=== PATIENT | male | born 1935 | race Caucasian/White ===

== ENCOUNTER 2020-11-04 21:05 | Observation (INO) | payer MEDICARE, BC ==
[~2020-11-04] VITALS: Ht 177.8 cm; Wt 100.0 kg
[2020-11-04 21:51] LABS: BASO # 0.1 (0.0-0.2); BASO % 0.5 % (0.0-2.0); EOS % 0.1 % (0-4.0); GRAN # 12.3 (1.4-6.5); GRAN % 89.8 % (42.2-75.2); HEMATOCRIT 41.8 % (42.0-52.0); HEMOGLOBIN 14.1 g/dl (13.5-18.0); LYMPH # 0.6 (1.2-3.4); LYMPH % 4.1 % (20.0-51.0); MEAN CELL VOLUME 93 fl (80.0-100.0); MEAN CORPUSCULAR HEMOGLOBIN 32 pg (27.0-31.0); MEAN CORPUSCULAR HGB CONC 34 g/dl (33.0-37.0); MEAN PLATELET VOLUME 10.6 fl (7.4-10.4); MONO # 0.7 (0.1-0.6); PLATELET COUNT 272 K/mm3 (130-400); RED BLOOD COUNT 4.48 M/mm3 (4.20-5.60); REDCELL DISTRIBUTION WIDTH-CV 12.8 % (11.5-14.5)
[2020-11-04 22:00] LABS: COLLECTION METHOD CLEAN CATCH
[2020-11-04 22:06] LABS: ALANINE AMINOTRANSFERASE 24 U/L (4-49); ALBUMIN 4.6 gm/dL (3.5-5.0); ALKALINE PHOSPHATASE 59 U/L (50-136); ANION GAP 10 mmol/L (7-16); AST,SGOT 30 U/L (15-37); BILIRUBIN,TOTAL 0.5 mg/dL (0.0-1.0); BLOOD UREA NITROGEN 26 mg/dL (9-20); CALCIUM 9.7 mg/dL (8.4-10.2); CARBON DIOXIDE 28 mmol/L (22-30); CHLORIDE 98 mmol/L (98-107); CREATININE, serum 1.24 (0.66-1.25); GLUCOSE 140 mg/dL (74-106); LIPASE 86 U/L (23-300); POTASSIUM 4.3 mmol/L (3.4-5.0); SODIUM 136 mmol/L (137-145); TOTAL PROTEIN 8.4 gm/dL (6.4-8.2)
[2020-11-04 22:07] LABS: MUCOUS Present /lpf; PH 5 (5-8); SQUAMOUS EPITHELIAL 0-2 /hpf; URINE APPEARANCE Hazy; URINE BACTERIA None Seen /hpf; URINE BILIRUBIN Negative (NEGATIVE); URINE BLOOD Negative (NEGATIVE); URINE COLOR Yellow; URINE GLUCOSE Negative (NEGATIVE); URINE KETONE Negative (NEGATIVE); URINE LEUKOCYTE ESTERASE Negative (NEGATIVE); URINE NITRATE Negative (NEGATIVE); URINE PROTEIN(semi-quant) 2+ (NEGATIVE); URINE RBC 0-2 /hpf; URINE UROBILINOGEN Negative (NEGATIVE)
[2020-11-04 22:08] LABS: C-REACTIVE PROTEIN < 0.5 mg/dL (0.0-0.9)
[2020-11-04 22:15] LABS: TROPONIN-I < 0.012 ng/mL (0.000-0.035)
[2020-11-04] MEDS ORDERED: NORVASC2.5 MG PO (22:16)
[2020-11-04] MEDS ORDERED: ASPIRIN 81M81 MG/TA2 PO (22:18)
[2020-11-04] MEDS ORDERED: EPA FISH OIL1 SGL PO (22:19)
[2020-11-04] MEDS ORDERED: PRAVACHOL 40MG40 MG PO (22:19)
[2020-11-04] MEDS ORDERED: DINO-LIFE1 CTB PO (22:19)
[2020-11-05] VITALS (9 sets, daily range): BP systolic 120–147; BP diastolic 43–60; PULSE 55–85; TEMP 97.4–98.7
--- NOTE | 2020-11-05 01:26 | NUR ---
aWAKE, ALERT, ORIENTED X 4, ABLE TO MAKE NEEDS KNOWN, UNSURE OF HOME MEDICATIONS, RESPIRATIONS EVEN AND UNLABORED, DENIES NAUSEA, STATES "i FEEL BETTER", vs STABLE
[2020-11-05 07:29] LABS: BASO % 0.4 % (0.0-2.0); EOS # 0.2 (0.0-0.7); GRAN # 7.9 (1.4-6.5); GRAN % 76.8 % (42.2-75.2); HEMATOCRIT 38.7 % (42.0-52.0); HEMOGLOBIN 12.7 g/dl (13.5-18.0); LYMPH # 1.2 (1.2-3.4); LYMPH % 11.5 % (20.0-51.0); MEAN CELL VOLUME 96 fl (80.0-100.0); MEAN CORPUSCULAR HEMOGLOBIN 31 pg (27.0-31.0); MEAN CORPUSCULAR HGB CONC 33 g/dl (33.0-37.0); MEAN PLATELET VOLUME 10.6 fl (7.4-10.4); MONO # 0.9 (0.1-0.6); MONO % 8.9 % (1.7-9.3); PLATELET COUNT 243 K/mm3 (130-400); RED BLOOD COUNT 4.04 M/mm3 (4.20-5.60)
[2020-11-05 07:30] LABS: CALCIUM 8.9 mg/dL (8.4-10.2); CREATININE, serum 1.09 (0.66-1.25); POTASSIUM 3.8 mmol/L (3.4-5.0)
--- NOTE | 2020-11-05 10:00 | NUR ---
Patient has been doing well this morning. Dr Tobin seen patient and ordered clear liquid diet. Patient has been up walking in the hallways without assistance. He denies nausea and pain. Stated he is passing flatus. No other changes at this time. Call light within reach.
--- NOTE | 2020-11-05 10:02 | NUR ---
Initial visit; Patient thanked Telephone Claims Representative for looking in on him and offering God's blessings.
--- NOTE | 2020-11-05 11:21 | NUR ---
Family Resource Management Specialist attended clinical rounds with the team. PT/OT ordered. SW met with the patient to complete intake. The patient lives in [place] with his , December. The patient denies DME use and is independent. The patient's PCP is Dr. Tariq and grain cleaner Dr. Salmon. Patient receives medications from [facility]. The patient does not have advanced directives but states he has forms at home to complete. The patient plans to return home at discharge. The patient's son-in-law Aric and daughter Zahida will provide transportation. *Discharge disposition at this time* Home with December
--- NOTE | 2020-11-05 18:30 | NUR ---
Patient has been doing well today. He ambulated in the hallways several times. He stated he had a small bowel movement this morning. He has been tolerating clear liquid diet without issues. No issues with nausea or pain today. No other changes at this time. Call light within reach.
--- NOTE | 2020-11-05 20:15 | NUR ---
Initial shift assessment done- denies pain ,denies nausea,, states was just up to bathroom and did have a soft small brown stool, states lots of gas also. Tele on. IV fluids of NS at 75cc/hr. States he hopes he can have some solid food tomorrow. On Clear liquids-tolerating well.
[2020-11-06 04:13] VITALS: BP 120/37; PULSE 52; TEMP 97.5
--- NOTE | 2020-11-06 05:56 | NUR ---
Quiet night, no requests, states feels fine--no abd pain, N/V. VSS
[2020-11-06 07:57] VITALS: BP 132/62; PULSE 55; TEMP 98.1
--- NOTE | 2020-11-06 08:15 | NUR ---
resting in bed, f ull assessment completed, see interventions for further info
[2020-11-06 08:43] LABS: BASO # 0.1 (0.0-0.2); EOS # 0.3 (0.0-0.7); EOS % 4.6 % (0-4.0); GRAN # 4.3 (1.4-6.5); GRAN % 70.6 % (42.2-75.2); HEMATOCRIT 40.9 % (42.0-52.0); HEMOGLOBIN 13.3 g/dl (13.5-18.0); LYMPH # 0.9 (1.2-3.4); LYMPH % 15.2 % (20.0-51.0); MEAN CELL VOLUME 96 fl (80.0-100.0); MEAN CORPUSCULAR HEMOGLOBIN 31 pg (27.0-31.0); MEAN CORPUSCULAR HGB CONC 33 g/dl (33.0-37.0); MEAN PLATELET VOLUME 10.4 fl (7.4-10.4); MONO # 0.5 (0.1-0.6); MONO % 7.9 % (1.7-9.3); PLATELET COUNT 238 K/mm3 (130-400); RED BLOOD COUNT 4.25 M/mm3 (4.20-5.60)
[2020-11-06 08:58] LABS: CALCIUM 8.6 mg/dL (8.4-10.2); CREATININE, serum 0.94 (0.66-1.25); POTASSIUM 3.9 mmol/L (3.4-5.0)
--- NOTE | 2020-11-06 09:06 | NUR ---
Fashion Design Professor attended clinical rounds with the team. PT is recommending home. The patient is independent. The patient is to tentatively discharge home today, 11/06. There are no additional needs.
--- NOTE | 2020-11-06 10:00 | NUR ---
resting in bed, Dr Jaimes and care team was in to see patient, will plan discharge later today
--- NOTE | 2020-11-06 11:30 | NUR ---
had bland diet and tolerated well
[2020-11-06 11:47] VITALS: BP 148/49; PULSE 62; TEMP 97.4
--- NOTE | 2020-11-06 11:50 | NUR ---
discharge instructions given to patient and his family, verbalizes understanding, will get dressed, telemetry discontinued
--- NOTE | 2020-11-06 12:09 | NUR ---
discharged per WC
== END 2020-11-06 12:09 | disposition home or self-care (01) ==
LOC: COL.ER 21:05 → MEDICAL 23:47
PROVIDERS: Nurse Practitioner; Physician Assistant; Student in an Organized Health Care Education/Training Program; ADMIT Internal Medicine
DX: K56.7 Ileus, unspecified (principal); R55 Syncope and collapse; D64.9 Anemia, unspecified; E27.8 Other specified disorders of adrenal gland; R00.1 Bradycardia, unspecified; I10 Essential (primary) hypertension; E78.5 Hyperlipidemia, unspecified; D72.829 Elevated white blood cell count, unspecified; Z87.891 Personal history of nicotine dependence; Z79.82 Long term (current) use of aspirin; Z79.899 Other long term (current) drug therapy
CPT/HCPCS: G0378; J0696; J7030; Q9967

== ENCOUNTER → 2020-11-19 | Outpatient (CLI) | payer MEDICARE, BC ==
[~2020-11-19] MED LIST: ASPIRIN 81M81 MG/TA2 PO; DINO-LIFE1 CTB PO; EPA FISH OIL1 SGL PO; NORVASC2.5 MG PO; PRAVACHOL 40MG40 MG PO
== END ==
LOC: COL.RAD 11:00
DX: D35.01 Benign neoplasm of right adrenal gland (principal)

== ENCOUNTER 2021-01-17 09:30 | Inpatient (IN) | payer MEDICARE, BC ==
[2021-01-17] VITALS (8 sets, daily range): BP systolic 111–166; BP diastolic 42–68; PULSE 46–58; TEMP 97.9
[~2021-01-17] VITALS: Ht 177.8 cm; Wt 100.0 kg
[2021-01-17 09:54] LABS: BASO # 0.1 (0.0-0.2); BASO % 0.9 % (0.0-2.0); EOS # 0.3 (0.0-0.7); GRAN # 4.2 (1.4-6.5); GRAN % 65.8 % (42.2-75.2); HEMOGLOBIN 14.3 g/dl (13.5-18.0); LYMPH # 1.3 (1.2-3.4); LYMPH % 19.8 % (20.0-51.0); MEAN CELL VOLUME 92 fl (80.0-100.0); MEAN CORPUSCULAR HEMOGLOBIN 31 pg (27.0-31.0); MEAN CORPUSCULAR HGB CONC 34 g/dl (33.0-37.0); MEAN PLATELET VOLUME 10.6 fl (7.4-10.4); MONO # 0.6 (0.1-0.6); MONO % 8.9 % (1.7-9.3); PLATELET COUNT 239 K/mm3 (130-400); RED BLOOD COUNT 4.58 M/mm3 (4.20-5.60); REDCELL DISTRIBUTION WIDTH-CV 12.7 % (11.5-14.5)
[2021-01-17 10:03] LABS: ALANINE AMINOTRANSFERASE 23 U/L (4-49); ALBUMIN 4.3 gm/dL (3.5-5.0); ALKALINE PHOSPHATASE 57 U/L (50-136); ANION GAP 7 mmol/L (7-16); AST,SGOT 30 U/L (15-37); BILIRUBIN,TOTAL 0.6 mg/dL (0.0-1.0); BLOOD UREA NITROGEN 17 mg/dL (9-20); CALCIUM 9.5 mg/dL (8.4-10.2); CARBON DIOXIDE 28 mmol/L (22-30); CHLORIDE 101 mmol/L (98-107); CREATININE, serum 1.07 (0.66-1.25); GLUCOSE 111 mg/dL (74-106); POTASSIUM 4.2 mmol/L (3.4-5.0); SODIUM 136 mmol/L (137-145); TOTAL PROTEIN 7.8 gm/dL (6.4-8.2)
[2021-01-17 10:19] LABS: TROPONIN-I < 0.012 ng/mL (0.000-0.035)
--- NOTE | 2021-01-17 13:09 | NUR ---
SEE MERGE FOR ALL MEDICATION ADMINISTRATION TIMES, INTRA AND POST SEDATION ASSESSMENTS
--- NOTE | 2021-01-17 14:00 | NUR ---
Pt arrives to medical unit rm [id number] from labor commissioner via cart accompanied by JARRETT Thacker. Pt awake and alert, denies pain or needs. IVF's infusing by gravity to left forearm site without s/s of complications. TR band in place to right wrist without s/s of complications, brace also in place and POC reviewed with pt regarding activity restrictions and bedrest. Pt verbalizes understanding. Physical assessment unremarkable. Call light in reach.
[2021-01-17] MEDS ORDERED: NORVASC2.5 MG PO (15:14)
--- NOTE | 2021-01-17 16:09 | NUR ---
Removed 5 mls air from TR band, active bleeding immediately starts. 5 mls air reinjected into TR band, will reassess in 30 minutes. Pt denies pain or needs. [place] box provided. Call light in reach.
--- NOTE | 2021-01-17 16:35 | NUR ---
5 mls air removed from TR band, no active bleeding at this time. Will reassess in 10 minutes.
--- NOTE | 2021-01-17 16:50 | NUR ---
Second 5 mls of air removed from TR band for a total of 10 mls removed, no s/s of active bleeding at this time.
--- NOTE | 2021-01-17 17:05 | NUR ---
Remaining 2 mls air removed from TR band for a total of 12 mls removed. No s/s of active bleeding. TR band removed and bandaid placed. Provider notified. Discharge order placed.
--- NOTE | 2021-01-17 18:33 | NUR ---
Discharge instructions reviewed with pt regarding follow-up appointments and changes to medication. Pt verbalizes understanding, discharged to home, escorted out of facility via WC accompanied by THERMOSTATIC CONTROLS SUPERVISOR and pt's family.
== END 2021-01-17 18:39 | disposition home or self-care (01) | DRG 287 ==
LOC: COL.ER 09:30 → MEDICAL 14:00
PROVIDERS: ADMIT Emergency Medicine
PROC: 4A023N7 Measurement of Cardiac Sampling and Pressure, Left Heart, Percutaneous Approach (ICD-10-PCS; principal; 2021-01-17)
PROC: B2111ZZ Fluoroscopy of Multiple Coronary Arteries using Low Osmolar Contrast (ICD-10-PCS; 2021-01-17)
DX: R07.89 Other chest pain (principal); I10 Essential (primary) hypertension; E78.5 Hyperlipidemia, unspecified; I25.10 Atherosclerotic heart disease of native coronary artery without angina pectoris; Z96.659 Presence of unspecified artificial knee joint; Z87.891 Personal history of nicotine dependence; Z79.82 Long term (current) use of aspirin
CPT/HCPCS: C1769; J1644; J2250; J3010; Q9967

== ENCOUNTER 2021-11-26 16:08 | Emergency (ER) | payer MEDICARE, BC ==
[~2021-11-26] VITALS: Ht 177.8 cm; Wt 95.5 kg
[2021-11-26 16:09] VITALS: TEMP 98.3
[2021-11-26 16:43] LABS: BASO % 0.3 % (0.0-2.0); EOS # 0.1 K/mm3 (0.0-0.7); EOS % 0.6 % (0.0-4.0); GRAN # 10.2 K/mm3 (1.4-6.5); HEMATOCRIT 38.7 % (42.0-52.0); HEMOGLOBIN 13.6 g/dl (13.5-18.0); LYMPH # 0.7 K/mm3 (1.2-3.4); LYMPH % 6.1 % (20.0-51.0); MEAN CELL VOLUME 90 fl (80.0-100.0); MEAN CORPUSCULAR HEMOGLOBIN 32 pg (27-31); MEAN CORPUSCULAR HGB CONC 35 g/dl (33.0-37.0); MEAN PLATELET VOLUME 10.3 fl (7.4-10.4); MONO # 0.8 K/mm3 (0.1-0.6); MONO % 6.5 % (1.7-9.3); PLATELET COUNT 250 K/mm3 (130-400); RED BLOOD COUNT 4.28 M/mm3 (4.20-5.60); REDCELL DISTRIBUTION WIDTH-CV 12.3 % (11.5-14.5)
[2021-11-26 16:59] LABS: ALBUMIN 4.1 gm/dL (3.4-4.8); BILIRUBIN,TOTAL 0.8 mg/dL (0.2-1.2); CREATININE, serum 1.15 mg/dL (0.72-1.25)
[2021-11-26 17:00] LABS: PROTHROMBIN TIME 11.9 SECONDS (9.7-12.8)
[2021-11-26 17:03] LABS: PARTIAL THROMBOPLASTIN TIME 30.1 SECONDS (26.0-37.0)
[2021-11-26 17:05] LABS: TROPONIN-I 0.011 ng/mL (0.00-0.033)
[2021-11-26 18:26] VITALS: BP 116/55; PULSE 56
== END 2021-11-26 18:26 | disposition home or self-care (01) ==
LOC: COL.ER 16:08
PROVIDERS: Family Medicine
DX: R55 Syncope and collapse (principal); R11.0 Nausea; R00.1 Bradycardia, unspecified
CPT/HCPCS: J2405; J7030

== ENCOUNTER 2021-11-27 15:42 | Emergency (ER) | payer MEDICARE, BC ==
[~2021-11-27] VITALS: Ht 177.8 cm; Wt 95.5 kg
[2021-11-27 15:55] VITALS: TEMP 98.2
[2021-11-27 16:29] LABS: BASO % 0.3 % (0.0-2.0); EOS # 0.1 K/mm3 (0.0-0.7); EOS % 0.7 % (0.0-4.0); GRAN % 79.3 % (42.2-75.2); HEMATOCRIT 37.6 % (42.0-52.0); HEMOGLOBIN 13.3 g/dl (13.5-18.0); LYMPH # 1.1 K/mm3 (1.2-3.4); LYMPH % 10.7 % (20.0-51.0); MEAN CELL VOLUME 90 fl (80.0-100.0); MEAN CORPUSCULAR HEMOGLOBIN 32 pg (27-31); MEAN CORPUSCULAR HGB CONC 35 g/dl (33.0-37.0); MEAN PLATELET VOLUME 10.1 fl (7.4-10.4); MONO # 0.9 K/mm3 (0.1-0.6); MONO % 8.6 % (1.7-9.3); PLATELET COUNT 272 K/mm3 (130-400); RED BLOOD COUNT 4.18 M/mm3 (4.20-5.60); REDCELL DISTRIBUTION WIDTH-CV 12.5 % (11.5-14.5)
[2021-11-27 16:44] LABS: ALBUMIN 3.9 gm/dL (3.4-4.8); C-REACTIVE PROTEIN 0.73 mg/dL (0.00-0.50); CALCIUM 8.9 mg/dL (8.4-10.2); CREATININE, serum 1.26 mg/dL (0.72-1.25); POTASSIUM 3.7 mmol/L (3.5-4.5); TOTAL PROTEIN 6.9 gm/dL (6.2-8.1)
[2021-11-27 16:50] LABS: COLLECTION METHOD CLEAN CATCH
[2021-11-27 16:57] LABS: MUCOUS Present (NOT PRESENT); PH 5 (5-8); SQUAMOUS EPITHELIAL None Seen /hpf (0-10); URINE APPEARANCE Clear (CLEAR/HAZY); URINE BACTERIA None Seen /hpf (NONE SEEN); URINE BILIRUBIN Negative (NEGATIVE); URINE BLOOD Negative (NEGATIVE); URINE COLOR Yellow (YELLOW); URINE GLUCOSE Negative (NEGATIVE); URINE KETONE Negative (NEGATIVE); URINE LEUKOCYTE ESTERASE Negative (NEGATIVE); URINE NITRATE Negative (NEGATIVE); URINE PROTEIN(semi-quant) 1+ (NEGATIVE); URINE RBC 0-2 /hpf (0-2); URINE UROBILINOGEN Negative (NEGATIVE)
[2021-11-27 19:25] VITALS: BP 138/64; PULSE 52
== END 2021-11-27 19:25 | disposition home or self-care (01) ==
LOC: COL.ER 15:42
PROVIDERS: Nurse Practitioner
DX: R10.10 Upper abdominal pain, unspecified (principal); Z87.891 Personal history of nicotine dependence
CPT/HCPCS: J7030; Q9967

== ENCOUNTER 2022-01-08 06:01 | Day surgery (SDC) | payer MEDICARE, BC ==
[2022-01-08] VITALS (17 sets, daily range): BP systolic 77–153; BP diastolic 32–70; PULSE 50–67; TEMP 97.4–98
[~2022-01-08] VITALS: Ht 15.2 cm; Wt 105.0 kg
[2022-01-08 07:49] LABS: HEMOGLOBIN 12.6 g/dl (13.5-18.0); INR 1.1 (0.8-3.0); MEAN CELL VOLUME 92 fl (80.0-100.0); MEAN CORPUSCULAR HEMOGLOBIN 31 pg (27-31); MEAN CORPUSCULAR HGB CONC 34 g/dl (33.0-37.0); MEAN PLATELET VOLUME 10.3 fl (7.4-10.4); PLATELET COUNT 262 K/mm3 (130-400); PROTHROMBIN TIME 12.3 SECONDS (9.7-12.8); RED BLOOD COUNT 4.02 M/mm3 (4.20-5.60); REDCELL DISTRIBUTION WIDTH-CV 12.6 % (11.5-14.5)
[2022-01-08 07:58] LABS: CREATININE, serum 0.96 mg/dL (0.72-1.25); POTASSIUM 4.3 mmol/L (3.5-4.5)
--- NOTE | 2022-01-08 10:21 | NUR ---
SEE MERGE FOR ALL MEDICATION ADMINISTRATION TIMES, INTRA AND POST SEDATION ASSESSMENTS
--- NOTE | 2022-01-08 13:26 | NUR ---
PT DISCHARGED FROM THE UNIT, IV REMOVED, TIP INTACT,DISCHARGED SUMMARY PROVIDED, PT AND FAMILY GIVEN THE DC INFORMARTION , VERBALIZE UNDERSTANDING, ESCORTED OUT OF THE UNIT BY THE PCT
--- NOTE | 2022-01-08 18:22 | NUR ---
patient admitted to the unit directly from airport maintenance laborer, pacemarker insertion done due to history of low pulse, pt is O/A X4,VSS,INCISION SITE DRY AND INTACT, IV ON LEFT HAND, DENIES ANY COMPLAINTS
--- NOTE | 2022-01-08 19:29 | NUR ---
BEDSIDE SHIFT REPORT GIVEN. PT LAYING IN BED RESTING QUIETLY. PT DENIES ANY PAIN AT THIS TIME.
--- NOTE | 2022-01-08 22:37 | NUR ---
Patient called around 2199, stated that he was having some discomfort to pacemaker site. This nurse spoke with primary nurse and offered to go give Tylenol. After entering room, patient was place. Stated that he was feeling very dizzy, and having discomfort to pacemaker site. BP 77/32. Rechecked: 86/37 at 2200. HOB lowered flat, and paged Dr. Mendoza at 2202. Patient reported dizzyness was getting better with HOB lowered. Did take Tylenol for paceaker discomfort. During that time, HOB was elevated and patient reports dizzyness came back. Kept HOB flat. BP 2205: 96/38. Paged Dr. Mendoza again around 2209. 2215: 96/43. 2229: 96/46. Continues to have some dizzyness. Color back in face. No changes noted in HR or on telemetry. Called computer tech to make sure and no change noted. Called Dr. Mendoza's cellphone at [phone], and updated on patient. New orders received: 500 ml NS bolus, followed by 500 mls NS at 250 ml/hr for 2 hours. Keep patient on bedrest/fall risk.
[2022-01-09] VITALS (7 sets, daily range): BP systolic 107–145; BP diastolic 50–82; PULSE 60–72; TEMP 97.6–97.9
--- NOTE | 2022-01-09 07:38 | NUR ---
PATIENT VSS, ORIENT AND ALERT X4, HYPOTENSION REPORTED OVER NIGHT,PACEMAKER DRESSING INTACT WITH BRUISING,DENIES ANY PAIN.BREAKFAST ORDERED
--- NOTE | 2022-01-09 10:53 | NUR ---
Initial visit; Patient thanked Sheet Metal Worker Apprentice for looking in on him. Patient very pleasant and responded when Sheet Metal Worker Apprentice wished him well and offered God's blessings.
[2022-01-09 12:06] LABS: BASO % 0.3 % (0.0-2.0); EOS # 0.1 K/mm3 (0.0-0.7); EOS % 0.8 % (0.0-4.0); GRAN % 77.4 % (42.2-75.2); HEMOGLOBIN 11.9 g/dl (13.5-18.0); LYMPH % 11.5 % (20.0-51.0); MEAN CELL VOLUME 93 fl (80.0-100.0); MEAN CORPUSCULAR HEMOGLOBIN 32 pg (27-31); MEAN CORPUSCULAR HGB CONC 34 g/dl (33.0-37.0); MEAN PLATELET VOLUME 10.3 fl (7.4-10.4); MONO # 0.9 K/mm3 (0.1-0.6); MONO % 9.4 % (1.7-9.3); PLATELET COUNT 219 K/mm3 (130-400); RED BLOOD COUNT 3.78 M/mm3 (4.20-5.60); REDCELL DISTRIBUTION WIDTH-CV 12.5 % (11.5-14.5)
[2022-01-09 12:09] LABS: HEMATOCRIT 35.1 % (42.0-52.0)
[2022-01-09 12:27] LABS: CALCIUM 8.8 mg/dL (8.4-10.2); CREATININE, serum 0.83 mg/dL (0.72-1.25); POTASSIUM 4.1 mmol/L (3.5-4.5)
--- NOTE | 2022-01-09 13:45 | NUR ---
SW met with the patient to discuss discharge plan. The patient lives alone [place] [facility]. He states that his three weeks ago. He states that his daughter, Zahida (ph#[phone]), lives locally. He reports indepedence with ADLs and does not have any DME. The patient's PCP is Dr. Souleymane Tariq and he receives his medications from [facility]. The patient does not have a DPOA-HC in EMR, but he states that he does have one completed and that he designated his younger daughter, Baylee (ph#[phone]). The patient states that he is and has two children: Zahida and Baylee. The patient plans to return home upon discharge. No additional needs at this time. *Discharge plan: home*
[2022-01-09] MEDS ORDERED: CLEOCIN HC150 MG/CAP PO (15:44)
[2022-01-09] MEDS ORDERED: TOPROL XL 25MG25 MG PO (15:45)
--- NOTE | 2022-01-09 18:30 | NUR ---
PATIENT ALERT AND ORIENT,VSS,POST PACEMAKER REPOSITIONING, TO DC HOME AFTER 2 HRS POST OP.
--- NOTE | 2022-01-09 19:14 | NUR ---
PROVIDED DISCHARGE PAPERWORK TO PATIENT AND REINFORCED FOLLOW UP APPOINTMENT AND ACTIVITY LIMITATIONS. FAMILY MEMBER TO STAY WITH PATIENT TONIGHT. BELONGINGS IN HAND, D/C IV SITE. SLING IN PLACE.
== END 2022-01-09 19:58 | disposition home or self-care (01) ==
LOC: COL.CAR 06:01 → MEDICAL 11:15 → COL.CAR 01-09 19:58
PROVIDERS: Internal Medicine Cardiovascular Disease
DX: I49.5 Sick sinus syndrome (principal); Z79.82 Long term (current) use of aspirin; E78.2 Mixed hyperlipidemia; I95.1 Orthostatic hypotension; I08.0 Rheumatic disorders of both mitral and aortic valves; I65.23 Occlusion and stenosis of bilateral carotid arteries; I12.9 Hypertensive chronic kidney disease with stage 1 through stage 4 chronic kidney disease, or unspecified chronic kidney disease; N18.31 Chronic kidney disease, stage 3a
CPT/HCPCS: OP; J2250; J3010; J3370; J7030; J7040; J7050

== ENCOUNTER 2022-01-12 10:28 | Inpatient (IN) | payer MEDICARE, BC ==
[~2022-01-12] VITALS: Ht 152.4 cm; Wt 95.0 kg
[2022-01-12] VITALS (14 sets, daily range): BP systolic 98–154; BP diastolic 41–73; PULSE 73–82; TEMP 97.6–98.1
[~2022-01-12 10:28] MED LIST changes: +CLEOCIN HC150 MG/CAP PO; +TOPROL XL 25MG25 MG PO
[2022-01-12 10:53] LABS: BASO # 0.1 K/mm3 (0.0-0.2); BASO % 0.6 % (0.0-2.0); EOS # 0.2 K/mm3 (0.0-0.7); EOS % 1.4 % (0.0-4.0); GRAN # 9.1 K/mm3 (1.4-6.5); GRAN % 80.6 % (42.2-75.2); HEMOGLOBIN 11.3 g/dl (13.5-18.0); LYMPH # 1.1 K/mm3 (1.2-3.4); LYMPH % 9.8 % (20.0-51.0); MEAN CELL VOLUME 90 fl (80.0-100.0); MEAN CORPUSCULAR HEMOGLOBIN 31 pg (27-31); MEAN CORPUSCULAR HGB CONC 35 g/dl (33.0-37.0); MEAN PLATELET VOLUME 10.2 fl (7.4-10.4); MONO # 0.8 K/mm3 (0.1-0.6); MONO % 7.1 % (1.7-9.3); PLATELET COUNT 260 K/mm3 (130-400); RED BLOOD COUNT 3.64 M/mm3 (4.20-5.60); REDCELL DISTRIBUTION WIDTH-CV 12.2 % (11.5-14.5)
[2022-01-12 10:55] LABS: HEMATOCRIT 32.8 % (42.0-52.0)
[2022-01-12 11:09] LABS: ALBUMIN 3.6 gm/dL (3.4-4.8); CALCIUM 8.9 mg/dL (8.4-10.2); CREATININE, serum 1.05 mg/dL (0.72-1.25); MAGNESIUM 1.9 mg/dL (1.6-2.6); PHOSPHOROUS 2.6 mg/dL (2.3-4.7)
[2022-01-12 11:16] LABS: TROPONIN-I 0.016 ng/mL (0.00-0.033)
--- NOTE | 2022-01-12 16:10 | NUR ---
1550 - Chest tube placement in CT with Dr. Andres. Timeout completed. 1555 - Placement confirmed & sterile tegaderm dressing applied. Heimlich valve taped to patient. 1615 - Report to JARRETT Hicks at bedside. Patient to room 330.
--- NOTE | 2022-01-12 19:30 | NUR ---
RECEIVED CHANGE OF SHIFT REPORT FROM DAY SHIFT RN.
[2022-01-12 21:11] LABS: HEMOGLOBIN 11.1 g/dl (13.5-18.0)
[2022-01-12 21:15] LABS: HEMATOCRIT 31.1 % (42.0-52.0)
[2022-01-13 04:05] VITALS: BP 129/56; BP 156/59; PULSE 70; TEMP 97.6
[2022-01-13 06:15] LABS: CALCIUM 8.9 mg/dL (8.4-10.2); CREATININE, serum 0.89 mg/dL (0.72-1.25); POTASSIUM 4.2 mmol/L (3.5-4.5)
[2022-01-13 06:34] LABS: BASO # 0.1 K/mm3 (0.0-0.2); BASO % 0.5 % (0.0-2.0); EOS # 0.1 K/mm3 (0.0-0.7); EOS % 0.7 % (0.0-4.0); GRAN # 8.7 K/mm3 (1.4-6.5); GRAN % 79.1 % (42.2-75.2); HEMOGLOBIN 10.2 g/dl (13.5-18.0); LYMPH # 1.1 K/mm3 (1.2-3.4); LYMPH % 10.2 % (20.0-51.0); MEAN CELL VOLUME 91 fl (80.0-100.0); MEAN CORPUSCULAR HEMOGLOBIN 31 pg (27-31); MEAN CORPUSCULAR HGB CONC 35 g/dl (33.0-37.0); PLATELET COUNT 224 K/mm3 (130-400); RED BLOOD COUNT 3.26 M/mm3 (4.20-5.60); REDCELL DISTRIBUTION WIDTH-CV 12.4 % (11.5-14.5)
--- NOTE | 2022-01-13 07:02 | NUR ---
CHANGE OF SHIFT REPORT GIVEN TO DAY SHIFT RNHAIM.
[2022-01-13 07:04] VITALS: BP 148/46; PULSE 71; TEMP 98.4
[2022-01-13 07:08] LABS: HEMATOCRIT 29.6 % (42.0-52.0)
--- NOTE | 2022-01-13 08:35 | NUR ---
VERBAL ORDER RECIEVED FROM HOSPITALIST TO CLAMP PATIENT CHEST TUBE AT THIS TIME. WILL REPEAT CHEST X RAY LATER TODAY TO ENSURE NO FURTHER ISSUE ARISES THEN PLAN TO REMOVE CHEST TUBE. EXPLAINED THIS TO PATIENT, VERBALIZED UNDERSTANDING.
--- NOTE | 2022-01-13 09:01 | NUR ---
Initial visit; Brim Buster had a short visit with patient until interrupted by Staff. Patient was talking about his who passed four weeks ago then he had this current issue after having heart issues earlier. Patient thanked Brim Buster for stopping. will follow up while Brandt is a patient.
[2022-01-13 11:43] VITALS: BP 149/48; PULSE 70; TEMP 98.6
--- NOTE | 2022-01-13 12:59 | NUR ---
glueline worker met with patient to complete intake and discuss discharge plan. Patient lives at home alone at home in [place]. Daughter Zahida ([phone]) present at bedside. Zahida states that the patient's approx. 3 weeks ago. Patient is independent with his ADL's and will utilize a cane prn to assist with mobility. Patient has no home oxygen needs. PCP is Dr. Tariq and he utilizes [facility] pharmacy for prescriptions with no cost difficulty. Patient reports that he does have a DPOA-HC but it is not found in the patient's EMR. Patient is planning on returning home once medically ready. Discharge plan: Home
--- NOTE | 2022-01-13 14:45 | NUR ---
LEFT ANTERIOR CHEST TUBE REMOVED AT THIS TIME BY DR RODRIGUEZ. PATIENT TOLERATED WELL. NO COMPLAINTS AT THIS TIME. TO DISCHARGE TODAY.
[2022-01-14] MEDS ORDERED: STOOL SOFTENER100 M2 PO (11:03)
[2022-01-14] MEDS ORDERED: MIRALAX238G PO (11:03)
== END 2022-01-13 16:00 | disposition home or self-care (01) | DRG 920 ==
LOC: COL.ER 10:28 → SURG 14:44
PROVIDERS: Emergency Medicine; ADMIT Internal Medicine
PROC: 0W9B30Z Drainage of Left Pleural Cavity with Drainage Device, Percutaneous Approach (ICD-10-PCS; principal; 2022-01-12)
DX: M96.841 Postprocedural hematoma of a musculoskeletal structure following other procedure (principal); J95.811 Postprocedural pneumothorax; E78.5 Hyperlipidemia, unspecified; Z96.653 Presence of artificial knee joint, bilateral; Y83.8 Other surgical procedures as the cause of abnormal reaction of the patient, or of later complication, without mention of misadventure at the time of the procedure; I08.3 Combined rheumatic disorders of mitral, aortic and tricuspid valves; I95.1 Orthostatic hypotension; D64.9 Anemia, unspecified; I12.9 Hypertensive chronic kidney disease with stage 1 through stage 4 chronic kidney disease, or unspecified chronic kidney disease; N18.30 Chronic kidney disease, stage 3 unspecified; Y92.89 Other specified places as the place of occurrence of the external cause; Z90.89 Acquired absence of other organs; Z95.0 Presence of cardiac pacemaker; Z88.1 Allergy status to other antibiotic agents; Z88.0 Allergy status to penicillin; Z88.7 Allergy status to serum and vaccine; Z79.82 Long term (current) use of aspirin; Z87.891 Personal history of nicotine dependence; Z85.828 Personal history of other malignant neoplasm of skin
CPT/HCPCS: OP; G0378; J2250; J2270; J2405; J3010; J7030; Q9967

== ENCOUNTER 2022-02-04 18:50 | Emergency (ER) | payer MEDICARE, BC ==
[~2022-02-04] VITALS: Ht 177.8 cm; Wt 95.8 kg
[~2022-02-04 18:50] MED LIST changes: +MIRALAX238G PO; +STOOL SOFTENER100 M2 PO
[2022-02-04 18:55] VITALS: TEMP 97.5
[2022-02-04 19:55] LABS: BASO # 0.1 K/mm3 (0.0-0.2); BASO % 0.9 % (0.0-2.0); EOS # 0.2 K/mm3 (0.0-0.7); EOS % 3.6 % (0.0-4.0); GRAN # 4.7 K/mm3 (1.4-6.5); GRAN % 70.2 % (42.2-75.2); HEMOGLOBIN 11.4 g/dl (13.5-18.0); LYMPH % 15.1 % (20.0-51.0); MEAN CELL VOLUME 94 fl (80.0-100.0); MEAN CORPUSCULAR HEMOGLOBIN 32 pg (27-31); MEAN CORPUSCULAR HGB CONC 34 g/dl (33.0-37.0); MEAN PLATELET VOLUME 10.1 fl (7.4-10.4); MONO # 0.6 K/mm3 (0.1-0.6); MONO % 9.3 % (1.7-9.3); PLATELET COUNT 257 K/mm3 (130-400); REDCELL DISTRIBUTION WIDTH-CV 12.9 % (11.5-14.5)
[2022-02-04 20:01] LABS: HEMATOCRIT 33.7 % (42.0-52.0)
[2022-02-04 20:12] LABS: ALANINE AMINOTRANSFERASE 24 U/L (0-55); ALBUMIN 3.7 gm/dL (3.4-4.8); ALKALINE PHOSPHATASE 62 U/L (40-150); ANION GAP 11 mmol/L (7-16); AST,SGOT 22 U/L (5-34); BILIRUBIN,TOTAL 0.7 mg/dL (0.2-1.2); BLOOD UREA NITROGEN 12 mg/dL (8-26); CALCIUM 8.8 mg/dL (8.4-10.2); CARBON DIOXIDE 25 mmol/L (23-31); CHLORIDE 99 mmol/L (98-107); CREATININE, serum 0.98 mg/dL (0.72-1.25); GLUCOSE 104 mg/dL (70-99); SODIUM 135 mmol/L (136-145); TOTAL PROTEIN 6.6 gm/dL (6.2-8.1)
[2022-02-04 20:23] LABS: TROPONIN-I < 0.010 ng/mL (0.00-0.033)
[2022-02-04 20:38] VITALS: BP 141/68; PULSE 70
== END 2022-02-04 20:54 | disposition home or self-care (01) ==
LOC: COL.ER 18:50
PROVIDERS: Emergency Medicine
DX: R07.89 Other chest pain (principal); I10 Essential (primary) hypertension; Z95.0 Presence of cardiac pacemaker; Z79.899 Other long term (current) drug therapy